=== PATIENT | male | born 1990 | race Caucasian/White ===

== ENCOUNTER 2020-12-13 01:13 | Emergency (ER) | payer OTHER ==
[2020-12-13] MEDS ORDERED: LORTAB 10 MG-3473 ML PO (04:09)
[2020-12-13] MEDS ORDERED: HYDROCODON-ACE473 ML PO (09:24)
== END 2020-12-13 04:47 | disposition home or self-care (01) ==
LOC: FER 01:13
DX: S83.512A Sprain of anterior cruciate ligament of left knee, initial encounter (principal); W00.0XXA Fall on same level due to ice and snow, initial encounter; Y92.009 Unspecified place in unspecified non-institutional (private) residence as the place of occurrence of the external cause
CPT/HCPCS: 73560; 96372; J1885

== ENCOUNTER 2021-12-12 23:07 | Emergency (ER) | payer OTHER ==
[~2021-12-12 23:07] MED LIST: HYDROCODON-ACE473 ML PO; LORTAB 10 MG-3473 ML PO
[2021-12-12 23:39] LABS: BASOPHIL 0.4 % (0-2); HCT 49.3 % (42.0-52.0); HGB 16.6 g/dl (13.2-18.0); LYMPHOCYTE 23.8 % (15-48); MCH 28.4 pg (25.0-31.0); MCHC 33.7 g/dL (32.0-36.0); MCV 84.4 fL (78.0-100.0); MONOCYTE 8.3 % (0-12); MPV 10.2 fL (6.0-9.5); NEUTROPHIL 65.1 % (41-80); NRBC 0; PLT 222 K/uL (150-400); RBC 5.84 M/uL (4.70-6.00); RDW 12.9 % (11.5-14.0); WBC 9.5 K/uL (4.0-10.5)
[2021-12-13 00:08] LABS: BUN/CREAT RATIO (CALC) 14.8 RATIO; CREATININE 0.88 mg/dL (0.67-1.17)
[2021-12-13 00:56] LABS: CORONAVIRUS 2019 SARS-COV-2 NEGATIVE (NEGATIVE); INFLUENZA A NAA NEGATIVE (NEGATIVE)
[2021-12-13] MEDS ORDERED: PERCOCET 5-3251 EACH PO (02:28)
== END 2021-12-13 02:50 | disposition home or self-care (01) ==
LOC: FER 23:07
PROVIDERS: Internal Medicine
DX: R07.89 Other chest pain (principal); Z20.822 Contact with and (suspected) exposure to COVID-19
CPT/HCPCS: 36415; 71045; 80048; 84145; 84484; 85025; 93005; 96372; J1170; J1885; U0002

== ENCOUNTER 2021-12-16 20:43 | Emergency (ER) | payer OTHER ==
[~2021-12-16 20:43] MED LIST changes: +PERCOCET 5-3251 EACH PO
[2021-12-16 21:20] LABS: BASOPHIL 0.4 % (0-2); EOSINOPHIL 2.2 % (0-5); HGB 15.6 g/dl (13.2-18.0); LYMPHOCYTE 27.7 % (15-48); MCH 28.4 pg (25.0-31.0); MCHC 33.2 g/dL (32.0-36.0); MCV 85.5 fL (78.0-100.0); MONOCYTE 8.2 % (0-12); MPV 9.9 fL (6.0-9.5); NEUTROPHIL 61.3 % (41-80); NRBC 0; PLT 235 K/uL (150-400); WBC 8.2 K/uL (4.0-10.5)
[2021-12-16 21:33] LABS: INR 1.02 (0.9-1.2); PROTHROMBIN TIME 12.8 SECONDS (11.8-13.4); PTT 24.9 SECONDS (24.4-34.7)
[2021-12-16 21:34] LABS: D-DIMER < 0.27 ug/mLFEU (0.00-0.41)
[2021-12-16 21:42] LABS: ALBUMIN 3.6 g/dL (3.4-5.0); BILIRUBIN - TOTAL 0.5 mg/dL (0.2-1.0); BUN/CREAT RATIO (CALC) 10.3 RATIO; CREATININE 0.97 mg/dL (0.67-1.17); GLOBULIN (CALCULATION) 3.6 g/dL; TOTAL PROTEIN 7.2 g/dL (6.4-8.2)
[2021-12-16] MEDS ORDERED: CARAFATE S500 MG/TSP PO (22:26)
[2021-12-16] MEDS ORDERED: PROTONIX 40MG T40 MG PO (22:26)
== END 2021-12-16 22:50 | disposition home or self-care (01) ==
LOC: FER 20:43
PROVIDERS: Emergency Medicine
DX: R07.89 Other chest pain (principal)
CPT/HCPCS: 36415; 71250; 80053; 83690; 83735; 84484; 85025; 85379; 85610; 85730; 93005; J1885

== ENCOUNTER 2021-12-20 03:50 | Emergency (ER) | payer OTHER ==
[~2021-12-20 03:50] MED LIST changes: +CARAFATE S500 MG/TSP PO; +PROTONIX 40MG T40 MG PO
[2021-12-20 04:32] LABS: BASOPHIL 0.4 % (0-2); EOSINOPHIL 2.2 % (0-5); HCT 47.8 % (42.0-52.0); HGB 15.6 g/dl (13.2-18.0); LYMPHOCYTE 29.9 % (15-48); MCHC 32.6 g/dL (32.0-36.0); MCV 85.8 fL (78.0-100.0); MONOCYTE 7.6 % (0-12); MPV 10.4 fL (6.0-9.5); NEUTROPHIL 59.4 % (41-80); NRBC 0; PLT 250 K/uL (150-400); RBC 5.57 M/uL (4.70-6.00); RDW 12.9 % (11.5-14.0); WBC 9.7 K/uL (4.0-10.5)
[2021-12-20 04:53] LABS: ALBUMIN 3.8 g/dL (3.4-5.0); BILIRUBIN - TOTAL 0.5 mg/dL (0.2-1.0); BUN/CREAT RATIO (CALC) 12.9 RATIO; CREATININE 0.85 mg/dL (0.67-1.17); POTASSIUM 4.8 mmol/L (3.5-5.1); TOTAL PROTEIN 7.8 g/dL (6.4-8.2)
== END 2021-12-20 06:14 | disposition home or self-care (01) ==
LOC: FER 03:50
PROVIDERS: Internal Medicine
DX: R07.89 Other chest pain (principal); J02.0 Streptococcal pharyngitis; B95.5 Unspecified streptococcus as the cause of diseases classified elsewhere
CPT/HCPCS: 36415; 71045; 80053; 83690; 84145; 84484; 85025; 93005; J2060; J2930